=== PATIENT | male | born 1970 | race Caucasian/White ===

== ENCOUNTER → 2018-01-09 | Outpatient (REF) | payer SELFPAY, OTHER ==
[2018-01-09 12:24] LABS: BASO % 0.4 % (0.0-1.0); EOS # 0.2 10^3/uL (0.0-0.50); EOS % 4.5 % (0.0-3.0); HEMATOCRIT 43.2 % (42.0-52.0); HEMOGLOBIN 14.9 g/dl (13.5-17.5); IMMATURE GRANULOCYTE % 0.2 % (0-3.0); LYMPH # 1.5 10^3/uL (1.5-4.5); LYMPH % 29.8 % (24.0-44.0); MEAN CORPUSCULAR HEMOGLOBIN 31.3 pg (27.0-33.0); MEAN CORPUSCULAR HGB CONC 34.5 g/dl (32.0-36.5); MEAN CORPUSCULAR VOLUME 90.8 fl (80.0-96.0); MONO # 0.4 10^3/uL (0.0-0.8); MONO % 7.6 % (0.0-5.0); NEUTROPHILS # 2.8 10^3/uL (1.8-7.7); NEUTROPHILS % 57.5 % (36.0-66.0); PLATELET COUNT, AUTOMATED 160 10^3/uL (150-450); RED BLOOD COUNT 4.76 10^6/uL (4.30-6.10); RED CELL DISTRIBUTION WIDTH 12.4 % (11.5-14.5); WHITE BLOOD COUNT 4.9 10^3/uL (4.0-10.0)
[2018-01-09 12:49] LABS: ALBUMIN/GLOBULIN RATIO 1.38 (1.00-1.93); ALKALINE PHOSPHATASE 81 U/L (45-117); ALT/SGPT 28 U/L (12-78); ANION GAP 7 MEQ/L (8-16); AST/SGOT 19 U/L (7-37); BILIRUBIN,TOTAL 0.7 MG/DL (0.2-1.0); BLOOD UREA NITROGEN 18 MG/DL (7-18); CALCIUM LEVEL 8.7 MG/DL (8.5-10.1); CARBON DIOXIDE LEVEL 30 MEQ/L (21-32); CHLORIDE LEVEL 106 MEQ/L (98-107); CHOLESTEROL LEVEL 191 MG/DL (<200); CHOLESTEROL RISK RATIO 3.603 (<5); CREATININE FOR GFR 0.83 MG/DL (0.70-1.30); FREE T4 1.12 NG/DL (0.76-1.46); GLOMERULAR FILTRATION RATE > 60.0 (>60); GLUCOSE, FASTING 91 MG/DL (70-100); HDL CHOLESTEROL 53 MG/DL (>40); LDL CHOLESTEROL 126.2 MG/DL (<100); NON-HDL-C 138 MG/DL; SODIUM LEVEL 143 MEQ/L (136-145); TOTAL PROTEIN 6.9 GM/DL (6.4-8.2); TRIGLYCERIDES LEVEL 59 MG/DL (<150)
[2018-01-09 13:30] LABS: ESTIMATED AVERAGE GLUCOSE 100 MG/DL (60-110); HEMOGLOBIN A1c 5.1 %
== END ==
LOC: M SFHCPLAZ 08:34
DX: Z13.220 Encounter for screening for lipoid disorders (principal); I34.1 Nonrheumatic mitral (valve) prolapse; E66.3 Overweight
CPT/HCPCS: 84443

== ENCOUNTER → 2018-10-10 | Outpatient (REF) | payer BC ==
[2018-10-10 12:20] LABS: CHOLESTEROL RISK RATIO 3.823 (<5); FREE T4 1.05 NG/DL (0.76-1.46); THYROID STIMULATING HORMONE 2.5 uIU/ML (0.358-3.740)
[2018-10-10 13:19] LABS: HEMOGLOBIN A1c 5.2 %
== END ==
LOC: M SFHCPLAZ 08:51
PROVIDERS: ATTEND Physician Assistant Medical
DX: E66.3 Overweight (principal); Z13.220 Encounter for screening for lipoid disorders; Z12.5 Encounter for screening for malignant neoplasm of prostate
CPT/HCPCS: 36415; 80061; 83036; 84439; 84443; G0103

== ENCOUNTER → 2020-10-14 | Outpatient (REF) | payer BC ==
[2020-10-14 17:28] LABS: BASO % 0.3 % (0.0-1.0); EOS # 0.1 10^3/uL (0.0-0.5); EOS % 1.9 % (0.0-3.0); HEMATOCRIT 45.8 % (42.0-52.0); HEMOGLOBIN 15.5 g/dl (13.5-17.5); LYMPH # 1.9 10^3/uL (1.5-5.0); LYMPH % 30.2 % (24.0-44.0); MEAN CORPUSCULAR HEMOGLOBIN 31.4 pg (27.0-33.0); MEAN CORPUSCULAR HGB CONC 33.8 g/dl (32.0-36.5); MEAN CORPUSCULAR VOLUME 92.9 fl (80.0-96.0); MONO # 0.5 10^3/uL (0.0-0.8); MONO % 7.2 % (2.0-8.0); NEUTROPHILS # 3.8 10^3/uL (1.5-8.5); NEUTROPHILS % 60.1 % (36.0-66.0); PLATELET COUNT, AUTOMATED 202 10^3/uL (150-450); RED BLOOD COUNT 4.93 10^6/uL (4.30-6.10); WHITE BLOOD COUNT 6.4 10^3/uL (4.0-10.0)
[2020-10-14 17:50] LABS: ALBUMIN 3.9 GM/DL (3.2-5.2); ALT/SGPT 32 U/L (12-78); BILIRUBIN,TOTAL 0.6 MG/DL (0.2-1.0); BLOOD UREA NITROGEN 22 MG/DL (7-18); CALCIUM LEVEL 8.4 MG/DL (8.5-10.1); CARBON DIOXIDE LEVEL 30 MEQ/L (21-32); CHLORIDE LEVEL 106 MEQ/L (98-107); CHOLESTEROL LEVEL 212 MG/DL (<200); CHOLESTEROL RISK RATIO 3.593 (<5); CREATININE FOR GFR 0.85 MG/DL (0.70-1.30); FREE T4 0.95 NG/DL (0.76-1.46); GLOMERULAR FILTRATION RATE > 60.0 (>56); GLUCOSE, FASTING 63 MG/DL (70-100); HDL CHOLESTEROL 59 MG/DL (>40); LDL CHOLESTEROL 138 MG/DL (<100); NON-HDL-C 153 MG/DL; POTASSIUM SERUM 3.9 MEQ/L (3.5-5.1); SODIUM LEVEL 141 MEQ/L (136-145); TOTAL PROTEIN 7.2 GM/DL (6.4-8.2); TRIGLYCERIDES LEVEL 75 MG/DL (<150)
== END ==
LOC: M SFHCPLAZ 15:10
PROVIDERS: ATTEND Physician Assistant Medical
DX: Z00.00 Encounter for general adult medical examination without abnormal findings (principal); Z12.5 Encounter for screening for malignant neoplasm of prostate; Z13.220 Encounter for screening for lipoid disorders
CPT/HCPCS: 36415; 80053; 80061; 84439; 84443; 85025; G0103

== ENCOUNTER → 2021-04-06 | Outpatient (CLI) | payer BC | LOC: M LABSMTC 10:04 | PROVIDERS: ATTEND Anesthesiology | DX: Z01.818 Encounter for other preprocedural examination (principal); Z11.52 Encounter for screening for COVID-19 ==

== ENCOUNTER 2021-04-11 12:38 | Day surgery (SDC) | payer BC ==
[~2021-04-11] VITALS: Ht 172.7 cm; Wt 83.0 kg
[~2021-04-11 12:38] MED LIST: NS 1,000 ML IV ONE
--- OUTSIDE RECORDS SUMMARY | 2021-04-11 12:44 | CCD | Continuity of Care Document ---
Author Author Krzysztof RENTERIA M.D. Organization Unknown Address [address] [place] [address] Phone [phone] Care Team Providers Care Spray Drier Operator Name Role Phone Ann-MarieMassiel gregory Bowen CONNER AUTM [phone] Problems Active Problems Provider Date Screening for malignant neoplasm of colon Osvaldo james M.D. Onset: 11/05/2018 Social History Type Date Description Comments Sex Unknown ETOH Use Occasionally Tobacco Use Start: Unknown Patient has never smoked Allergies and adverse reactions Description No Known Drug Allergies Medications Active Medications SIG Qnty Indications Ordering Provide r Date Sutab 3728-941-325uc Tablets as directed 1box Osvaldo Renteria M.D. 02/22/2021 History Medications No Active Medications Unknown - 02/22/2021 Immunizations Description No Information Available Vital Signs Date Vital Result Comment 02/22/2021 9:11am Height 68 inches 5'8" Weight 187.00 lb BP Systolic 124 mmHg BP Diastolic 80 mmHg Heart Rate 75 /min BMI (Body Mass Index) 28.4 kg/m2 Weight 84.823 kg Body Temperature 96.4 F 11/05/2018 9:31am Height 68 inches 5'8" Weight 185.00 lb BP Systolic 124 mmHg BP Diastolic 83 mmHg Heart Rate 64 /min BMI (Body Mass Index) 28.1 kg/m2 Weight 83.916 kg Results Description No Information Available Procedures Description No Information Available Medical Devices Description No Information Available Encounters Description No Information Available Assessments Date Code Description Provider 02/22/2021 Z12.11 Encounter for screening for skyler gnant neoplasm of colon Osvaldo Renteria M.D. Plan of Treatment Future Appointment(s):* 04/11/2021 12:30 pm - Osvaldo Renteria M.D. at Main Office 02/22/2021 - Osvaldo Renteria M.D.* Z12.11 Encounter for screening for malignant neoplasm of colon* Comments:* 50 yo wm who presents for a screening colonoscopy. No c/o abdominal pain, weight loss, change in bowel habits, or rectal bleeding. No family h/o colon cancer. No h/o chest pain, or sob. Plan:1.Schedule patient for a colonoscopy.2.Informed consent given to the patient.3.Pt. advised to stop aspirin,plavix, and anticoagulants at least 3 to 7 days prior to the procedure. Functional Status Description No Information Available Mental Status Description No Information Available Referrals Description No Information Available
--- OUTSIDE RECORDS SUMMARY | 2021-04-11 12:44 | CCD | Continuity of Care Document ---
Author Author Krzysztof RENTERIA M.D. Organization Unknown Address [address] [place] [address] Phone [phone] Care Team Providers Care Health Information Administrator Name Role Phone Ann-MarieMassiel gregory Bowen CONNER AUTM [phone] Problems Active Problems Provider Date Screening for malignant neoplasm of colon Osvaldo james M.D. Onset: 11/05/2018 Social History Type Date Description Comments Sex Unknown ETOH Use Occasionally Tobacco Use Start: Unknown Patient has never smoked Allergies and adverse reactions Description No Known Drug Allergies Medications Active Medications SIG Qnty Indications Ordering Provide r Date Sutab 9988-363-825cg Tablets as directed 1box Osvaldo Renteria M.D. [...] kg Results Description No Information Available Procedures Date Code Description Status 02/22/2021 21363 Office/Outpatient Established Lo w MDM 20-29 Min Completed Medical Devices Description No Information Available Encounters Type Date Location Provider Dx Diagnosis Office Visit 02/22/2021 9:30a Main Office Osvaldo Renteria M.D. Z 12.11 Encounter for screening for malignant neoplasm of colon Assessments Date Code Description Provider 02/22/2021 Z12.11 [...]
--- OUTSIDE RECORDS SUMMARY | 2021-04-11 12:44 | CCD ---
Author Author [facility] Organization [facility] Address Unknown Phone Unavailable Care Team Providers Care Hot Strip Finisher Name Role Phone Tori Renteria MD Unavailable Unavailable Tori Renteria MD Unavailable Unavailable Tori Renteria MD Unavailable Unavailable Tori Renteria MD Unavailable Unavailable Tori Renteria MD Unavailable Unavailable Tori Renteria MD Unavailable Unavailable Tori Renteria MD Unavailable Unavailable Tori Renteria MD Unavailable Unavailable Tori Renteria MD Unavailable Unavailable Tori Renteria MD Unavailable Unavailable Tori Renteria MD Unavailable Unavailable Tori Renteria MD Unavailable Unavailable Tori Renteria MD Unavailable Unavailable Tori Renteria MD Unavailable Unavailable Tori Renteria MD Unavailable Unavailable Tori Renteria MD Unavailable Unavailable Tori Renteria MD Unavailable Unavailable Tori Renteria MD Unavailable Unavailable Tori Renteria MD Unavailable Unavailable Tori Renteria MD Unavailable Unavailable Tori Renteria MD Unavailable Unavailable Tori Renteria MD Unavailable Unavailable oTri Renteria MD Unavailable Unavailable Tori Renteria MD Unavailable Unavailable Tori Renteria MD Unavailable Unavailable Tori Renteria MD Unavailable Unavailable Tori Renteria MD Unavailable Unavailable Tori Renteria MD Unavailable Unavailable Tori Renteria MD Unavailable Unavailable Tori Renteria MD Unavailable Unavailable Tori Renteria MD Unavailable Unavailable Tori Renteria MD Unavailable Unavailable Tori Renteria MD Unavailable Unavailable Tori Renteria MD Unavailable Unavailable Tori Renteria MD Unavailable Unavailable Dexter, S Osvaldo MD Unavailable Unavailable Dexter, S Osvaldo MD Unavailable Unavailable Dexter, S Osvaldo MD Unavailable Unavailable Dexter, S Osvaldo MD Unavailable Unavailable Dexter, S Osvaldo MD Unavailable Unavailable Dexter, S Osvaldo MD Unavailable Unavailable Dexter, S Osvaldo MD Unavailable Unavailable Dexter, S Osvaldo MD Unavailable Unavailable Dexter, S Osvaldo MD Unavailable Unavailable Dexter, S Osvaldo MD Unavailable Unavailable Dexter, S Osvaldo MD Unavailable Unavailable Dexter, S Osvaldo MD Unavailable Unavailable Dexter, S Osvaldo MD Unavailable Unavailable Dexter, S Osvaldo MD Unavailable Unavailable Dexter, S Osvaldo MD Unavailable Unavailable Re-disclosure Warning The records that you are about to access may contain information from federally-assisted alcohol or drug abuse programs. If such information is present, then the following federally mandated warning applies: This information has been disclosed to you from records protected by federal confidentiality rules (42 CFR part 2). The federal rules prohibit you from making any further disclosure of this information unless further disclosure is expressly permitted by the written consent of the person to whom it pertains or as otherwise permitted by 42 CFR part 2. A general authorization for the release of medical or other information is NOT sufficient for this purpose. The Federal rules restrict any use of the information to criminally investigate or prosecute any alcohol or drug abuse patient.The records that you are about to access may contain highly sensitive health information, the redisclosure of which is protected by Article 27-F of the [facility] Public Health law. If you continue you may have access to information: Regarding HIV / AIDS; Provided by facilities licensed or operated by the [facility] Office of Mental Health; or Provided by the [facility] Office for People With Developmental Disabilities. If such information is present, then the following [facility] mandated warning applies: This information has been disclosed to you from confidential records which are protected by state law. State law prohibits you from making any further disclosure of this information without the specific written consent of the person to whom it pertains, or as otherwise permitted by law. Any unauthorized further disclosure in violation of state law may result in a fine or chcf sentence or both. A general authorization for the release of medical or other information is NOT sufficient authorization for further disc losure. Family History Family Member Name Family Member Gender Family Member Status Date o f Status Description Data Source(s) Unknown Female Problem [facility] ([facility]) Encounters Encounter Providers Location Date Indications Data Source(s ) Outpatient Attender: Osvaldo Renteria MD Main Office 02/22/2021 09:30:00 AM EDT [facility] ([facility]) [place] [address] [facility] [address] 10/14/2020 12:00:00 AM EDT eCW1 ([facility]) [place] [address] [facility] [address] 09/23/2020 12:00:00 AM EDT eCW1 ([facility]) [place] [address] [facility] [address] 09/22/2020 12:00:00 AM EDT eCW1 ([facility]) Unknown [address] [facility] [address] 09/21/2020 12:00:00 AM EDT eCW1 ([facility]) Unknown [address] [facility] [address] 09/21/2020 12:00:00 AM EDT eCW1 ([facility]) [place] [address] [facility] [address] 09/17/2020 12:00:00 AM EDT eCW1 ([facility]) Outpatient [address] [facility] [address] 09/13/2020 12:00:00 AM EDT eCW1 ([facility]) Immunizations Vaccine Date Status Description Data Source(s) COVID-19 dose #2 given elsewhere Unspecified 10/04/2020 02:3 5:00 PM EDT completed eCW1 ([facility]) COVID-19 VACCINE Pfizer 10/04/2020 12:00:00 AM EDT completed [employer] Vaccine Series Complete: YESThis Data wa s Submitted to [facility] Via [employer]. COVID-19 dose #1 given elsewhere Unspecified 09/13/2020 08:2 5:00 AM EDT completed eCW1 ([facility]) COVID-19 dose #1 given elsewhere Unspecified 09/13/2020 08:2 5:00 AM EDT completed eCW1 ([facility]) COVID-19 dose #1 given elsewhere Unspecified 09/13/2020 08:2 5:00 AM EDT completed eCW1 ([facility]) COVID-19 dose #1 given elsewhere Unspecified 09/13/2020 08:2 5:00 AM EDT completed eCW1 ([facility]) COVID-19 dose #1 given elsewhere Unspecified 09/13/2020 08:2 5:00 AM EDT completed eCW1 ([facility]) COVID-19 dose #1 given elsewhere Unspecified 09/13/2020 08:2 5:00 AM EDT completed eCW1 ([facility]) COVID-19 dose #1 given elsewhere Unspecified 09/13/2020 08:2 5:00 AM EDT completed eCW1 ([facility]) COVID-19 VACCINE Pfizer 09/13/2020 12:00:00 AM EDT completed [facility] Vaccine Series Complete: NOThis Data was Submitted to [facility] Via [employer]. Medications Medication Brand Name Start Date Product Form Dose Route Admi nistrative Instructions Pharmacy Instructions Status Indications Reaction Description Data Source(s) Sutab Sutab 02/22/2021 12:00:00 AM EDT active [facility] ([facility]) No Active Medications 02/22/2021 12:00:00 AM EDT completed [facility] ([facility]) Insurance Providers Payer name Policy type / Coverage type Policy ID Covered alliance party ID Covered alliance party's relationship to romero Policy Romero Plan Information [employer] [place]/307 [id number] SP [id number] [employer] [place]/307 [id number] SP [id number] ANSI-Commercial [id number] ANSI-Commercial [id number] ANSI-Not a Secondary Insurance [id number] BS [facility] Commercial [id number] Self [id number] ANSI-Commercial [id number] ANSI-Not a Secondary Insurance [id number] ANSI-Commercial [id number] ANSI-Commercial [id number] ANSI-Commercial [id number] ANSI-Not a Secondary Insurance [id number] ANSI-Commercial [id number] ANSI-Commercial [id number] ANSI-Not a Secondary Insurance [id number] ANSI-Commercial [id number] ANSI-Commercial [id number] ANSI-Not a Secondary Insurance [id number] ANSI-Not a Secondary Insurance [id number] ANSI-Commercial [id number] ANSI-Commercial [id number] ANSI-Not a Secondary Insurance [id number] ANSI-Commercial [id number] ANSI-Commercial [id number] ANSI-Not a Secondary Insurance [id number] ANSI-Commercial [id number] ANSI-Commercial [id number] ANSI-Not a Secondary Insurance [id number] ANSI-Not a Secondary Insurance [id number] ANSI-Commercial [id number] ANSI-Not a Secondary Insurance [id number] ANSI-Commercial [id number] SELF PAY ONLY [id number] ANSI-Commercial [id number] ANSI-Not a Secondary Insurance [id number] SELF PAY ONLY - [id number] SP [id number] BCBS [place] [id number] S [id number] [id number] BCBS [place] [id number] S [id number] [place]BS [place] PPO 302/307 [id number] SP [id number] Problems, Conditions, and Diagnoses No Information Surgeries/Procedures Procedure Description Date Indications Data Source(s) OFFICE OUTPATIENT VISIT 15 MINUTES 02/22/2021 12:00:00 AM EDT [facility] ([facility]) Results ID Date Data Source LIPID PANEL (CARDIAC RISK) 10/14/2020 12:00:00 AM EDT [facility] ( [facility]) Name Value Range Interpretation Code Description Data Serena rce(s) Supporting Document(s) Cholesterol [Moles/volume] in Serum or Plasma 212 <200 CHOLESTEROL LEVEL eC ([facility]) Triglyceride [Mass/volume] in Serum or Plasma by calculation 75 <150 TRIGLYCERIDES LEVEL eCW1 ([facility]) Cholesterol in HDL [Moles/volume] in Serum or Plasma 59 >40 HDL CHOLESTEROL eCW1 ([facility]) Cholesterol in LDL [Mass/volume] in Serum or Plasma by calculation 138 <100 LDL CHOLESTEROL [facility] ([facility]) 3.593 <5 CHOLESTEROL RISK RATIO eCW1 ([facility]) 153 NON-HDL-C eCW1 ([facility]) ID Date Data Source PSA SCREENING 10/14/2020 12:00:00 AM EDT eCW1 ([facility]) Name Value Range Interpretation Code Description Data Serena rce(s) Supporting Document(s) 0.90 < 4.00 PSA SCREENING eCW1 ([facility]) ID Date Data Source FREE T4 & TSH PANEL 10/14/2020 12:00:00 AM EDT eCW1 ([facility]) Name Value Range Interpretation Code Description Data Serena rce(s) Supporting Document(s) 2.180 0.358-3.740 THYROID STIMULATING HORM ONE eCW1 ([facility]) 0.95 0.76-1.46 FREE T4 eCW1 ([facility]) ID Date Data Source Comprehensive Metabolic Profile (CMP) 10/14/2020 12:00:00 AM EDT eCW1 ([facility]) Name Value Range Interpretation Code Description Data Serena rce(s) Supporting Document(s) 63 70-100 GLUCOSE, FASTING eCW1 ([facility]) 0.85 0.70-1.30 CREATININE FOR GFR eCW1 ([facility]) 22 7-18 BLOOD UREA NITROGEN eCW1 ([facility]) > 60.0 >56 GLOMERULAR FILTRATION RATE eCW 1 ([facility]) 3.9 3.5-5.1 POTASSIUM SERUM eCW1 ([facility]) 106 98-107 CHLORIDE LEVEL eCW1 ([facility]) 141 136-145 SODIUM LEVEL eCW1 ([facility]) 8.4 8.5-10.1 CALCIUM LEVEL eCW1 ([facility]) 30 21-32 CARBON DIOXIDE LEVEL eCW1 ([facility]) 21 7-37 AST/SGOT eCW1 ([facility]) 7.2 6.4-8.2 TOTAL PROTEIN eCW1 ([facility]) 91 45-117 ALKALINE PHOSPHATASE eCW1 ([facility]) 0.6 0.2-1.0 BILIRUBIN,TOTAL eCW1 ([facility]) 32 12-78 ALT/SGPT eCW1 ([facility]) 3.9 3.2-5.2 ALBUMIN eCW1 ([facility]) 1.2 ALBUMIN/GLOBULIN RATIO eCW1 ([facility]) ID Date Data Source CBC with Differential 10/14/2020 12:00:00 AM EDT eCW1 ([facility]) Name Value Range Interpretation Code Description Data Serena rce(s) Supporting Document(s) 6.4 4.0-10.0 WHITE BLOOD COUNT eCW1 ([facility]) 4.93 4.30-6.10 RED BLOOD COUNT eCW1 ([facility]) 15.5 13.5-17.5 HEMOGLOBIN eCW1 ([facility]) 45.8 42.0-52.0 HEMATOCRIT eCW1 ([facility]) 92.9 80.0-96.0 MEAN CORPUSCULAR VOLUME e CW1 ([facility]) 31.4 27.0-33.0 MEAN CORPUSCULAR HEMOGLOB IN eCW1 ([facility]) 33.8 32.0-36.5 MEAN CORPUSCULAR HGB CONC eCW1 ([facility]) 12.2 11.5-14.5 RED CELL DISTRIBUTION WID TH eCW1 ([facility]) 202 150-450 PLATELET COUNT, AUTOMATED eCW1 ([facility]) 60.1 36.0-66.0 NEUTROPHILS % eCW1 ([facility]) 30.2 24.0-44.0 LYMPH % eCW1 ([facility]) 1.9 0.0-3.0 EOS % eCW1 ([facility]) 7.2 2.0-8.0 MONO % eCW1 ([facility]) 3.8 1.5-8.5 NEUTROPHILS # eCW1 ([facility]) 0.3 0.0-1.0 BASO % eCW1 ([facility]) 1.9 1.5-5.0 LYMPH # eCW1 ([facility]) 0.0 0.0-0.2 BASO # eCW1 ([facility]) 0.1 0.0-0.5 EOS # eCW1 ([facility]) 0.5 0.0-0.8 MONO # eCW1 ([facility]) Procedure Social History Code Duration Value Status Description Data Source(s ) Smoking 10/14/2020 12:00:00 AM EDT Never Smoker completed Never S moker eCW1 ([facility]) Smoking 09/13/2020 12:00:00 AM EDT Never Smoker completed Never S moker eCW1 ([facility]) Smoking 09/13/2020 12:00:00 AM EDT Never Smoker completed Never S moker eCW1 ([facility]) Smoking 09/13/2020 12:00:00 AM EDT Never Smoker completed Never S moker eCW1 ([facility]) Smoking 09/13/2020 12:00:00 AM EDT Never Smoker completed Never S moker eCW1 ([facility]) Smoking 09/13/2020 12:00:00 AM EDT Never Smoker completed Never S moker eCW1 ([facility]) Smoking 09/13/2020 12:00:00 AM EDT Never Smoker completed Never S moker eCW1 ([facility]) Vital Signs ID Date Data Source UNK Name Value Range Interpretation Code Description Data Source(s) Body height 68 [in_i] 68 [in_i] [facility] ([facility] 5'8" Body weight 187.00 [lb_av] 187.00 [lb_av] MEDEN T ([facility]) Systolic blood pressure 124 mm[Hg] 124 mm[Hg] M EDENT ([facility]) Diastolic blood pressure 80 mm[Hg] 80 mm[Hg] [facility] ([facility]) Heart rate 75 /min 75 /min [facility] ([facility]) Body mass index (BMI) [Ratio] 28.4 kg/m2 28.4 k g/m2 MED[facility] ([facility]) Body weight 84.823 kg 84.823 kg [facility] ([facility]) Body temperature 96.4 [degF] 96.4 [degF] MEDENT ([facility]) Body weight 190 [lb_av] 190 [lb_av] eCW1 ([facility]) Body height 68.5 [in_i] 68.5 [in_i] eCW1 ([facility]) Body mass index (BMI) [Ratio] 28.47 kg/m2 28.47 kg/m2 eCW1 ([facility]) Heart rate 94 /min 94 /min eCW1 ([facility]) Respiratory rate 18 /min 18 /min eCW1 ([facility]) Body temperature 97.6 [degF] 97.6 [degF] eCW1 ( [facility]) Systolic blood pressure 116 mm[Hg] 116 mm[Hg] e CW1 ([facility]) Diastolic blood pressure 78 mm[Hg] 78 mm[Hg] eCW1 ([facility]) Body weight 189.6 [lb_av] 189.6 [lb_av] eCW1 ([facility]) Body height 68.5 [in_i] 68.5 [in_i] eCW1 ([facility]) Body mass index (BMI) [Ratio] 28.41 kg/m2 28.41 kg/m2 eCW1 ([facility]) Heart rate 93 /min 93 /min eCW1 ([facility]) Respiratory rate 18 /min 18 /min eCW1 ([facility]) Body temperature 98.0 [degF] 98.0 [degF] eCW1 ( [facility]) Systolic blood pressure 118 mm[Hg] 118 mm[Hg] e CW1 ([facility]) Diastolic blood pressure 76 mm[Hg] 76 mm[Hg] eCW1 ([facility])
[2021-04-11] MEDS ORDERED: propofoL 200 MG/20 ML VIAL As Ordered ONE ×2 (14:06→14:15)
[2021-04-11] MEDS ORDERED: LIDOCAINE 2% 100MG/5ML SDV (FOR ANES.) As Ordered ONE (14:06)
--- NOTE | 2021-04-11 14:27 | ROOR ---
Patient Name: Krzysztof Morales Procedure Date: 04/11/2021 2:02 PM Date of : 1970 Age: 51 Room: [facility] Gender: Male Note Status: Finalized Procedure: Total Colonoscopy to Cecum + ileoscopy Indications: Screening for colorectal malignant neoplasm Providers: Osvaldo Renteria MD Referring MD: Massiel MANCUSO Requesting Provider: Medicines: Monitored Anesthesia Care Complications: No immediate complications. Procedure: Pre-Anesthesia Assessment: - The heart rate, respiratory rate, oxygen saturations, blood pressure, adequacy of pulmonary ventilation, and response to care were monitored throughout the procedure. The Colonoscope was introduced through the anus and advanced to the cecum, identified by appendiceal orifice and ileocecal valve. The colonoscopy was performed without difficulty. The patient tolerated the procedure well. The quality of the bowel preparation was excellent. Findings: The perianal and digital rectal examinations were normal. No other significant abnormalities were identified in a careful examination of the remainder of the colon. The terminal ileum appeared normal. Impression: - The examined portion of the ileum was normal. - No specimens collected. - The exam was otherwise normal to the cecum. Recommendation: - Patient has a contact number available for emergencies. The signs and symptoms of potential delayed complications were discussed with the patient. Return to normal activities tomorrow. Written discharge instructions were provided to the patient. - High fiber diet. - Discharge patient to home. - Continue present medications. - Repeat colonoscopy in 10 years for screening purposes. - Return to referring physician. - The findings and recommendations were discussed with the patient. Procedure Code(s): --- Professional --- 64879, Colonoscopy, flexible; diagnostic, including collection of specimen(s) by brushing or washing, when performed (separate procedure) Diagnosis Code(s): --- Professional --- Z12.11, Encounter for screening for malignant neoplasm of colon CPT copyright 2019 [employer]. All rights reserved. The codes documented in this report are preliminary and upon cement conveyor operator review may be revised to meet current compliance requirements. Osvaldo Renteria MD Osvaldo Renteria MD 04/11/2021 2:27:25 PM Electronically signed by Osvaldo Renteria MD Number of Addenda: 0 Note Initiated On: 04/11/2021 2:02 PM Estimated Blood Loss: Estimated blood loss: none.
[2021-04-11 14:41] VITALS: BP 122/80
== END 2021-04-11 14:41 | disposition home or self-care (01) ==
LOC: M OPP 12:38
PROVIDERS: ATTEND Internal Medicine Gastroenterology
DX: Z12.11 Encounter for screening for malignant neoplasm of colon (principal)

== ENCOUNTER → 2024-10-08 | Outpatient (REF) | payer MEDICARE | LOC: M SFHCLERA 10:00 | PROVIDERS: ATTEND Internal Medicine | DX: Z53.21 Procedure and treatment not carried out due to patient leaving prior to being seen by health care provider (principal) ==

== ENCOUNTER → 2024-10-14 | Outpatient (CLI) | payer MEDICARE ==
[2024-10-14 09:44] LABS: APPEARANCE, URINE CLEAR (CLEAR); BACTERIA, URINE AUTO NEGATIVE (NEGATIVE); BASO % 0.2 % (0.0-1.0); BILIRUBIN, URINE AUTO NEGATIVE (NEGATIVE); BLOOD, URINE BLOOD NEGATIVE (NEGATIVE); COLOR, URINE STRAW (YELLOW); EOS # 0.1 10^3/uL (0.0-0.5); EOS % 2.7 % (0.0-3.0); GLUCOSE, URINE (UA) AUTO NEGATIVE (NEGATIVE); HEMATOCRIT 44.1 % (42.0-52.0); HEMOGLOBIN 15.2 g/dl (13.5-17.5); KETONE, URINE AUTO NEGATIVE (NEGATIVE); LEUKOCYTE ESTERASE, URINE AUTO NEGATIVE (NEGATIVE); LYMPH # 1.3 10^3/uL (1.5-5.0); LYMPH % 31.6 % (24.0-44.0); MEAN CORPUSCULAR HEMOGLOBIN 30.8 pg (27.0-33.0); MEAN CORPUSCULAR HGB CONC 34.5 g/dl (32.0-36.5); MEAN CORPUSCULAR VOLUME 89.5 fl (80.0-96.0); MONO # 0.5 10^3/uL (0.0-0.8); MONO % 11.2 % (2.0-8.0); NEUTROPHILS # 2.2 10^3/uL (1.5-8.5); NEUTROPHILS % 54.1 % (36.0-66.0); NITRITE, URINE AUTO NEGATIVE (NEGATIVE); PLATELET COUNT, AUTOMATED 173 10^3/uL (150-450); PROTEIN, URINE AUTO NEGATIVE (NEGATIVE); RBC, URINE AUTO 0 /HPF (0-3); RED BLOOD COUNT 4.93 10^6/uL (4.30-6.10); SPECIFIC GRAVITY URINE AUTO 1.004 (1.002-1.035); SQUAMOUS EPITHELIAL CELL UR AU 0 /HPF (0-6); UROBILINOGEN, URINE AUTO 0.2 mg/dL (0.0-2.0); WBC, URINE AUTO 0 /HPF (0-3); WHITE BLOOD COUNT 4.1 10^3/uL (4.0-10.0)
[2024-10-14 10:14] LABS: ALBUMIN 4.1 G/DL (3.2-5.2); ALKALINE PHOSPHATASE 84 U/L (40-129); ALT/SGPT 24 U/L (7.0-40); AST/SGOT 25 U/L (<34); BILIRUBIN,TOTAL 0.9 MG/DL (0.3-1.2); BLOOD UREA NITROGEN 16 MG/DL (9-23); CALCIUM LEVEL 8.8 MG/DL (8.5-10.1); CARBON DIOXIDE LEVEL 26 MMOL/L (20-31); CHLORIDE LEVEL 105 MMOL/L (98-107); CHOLESTEROL LEVEL 160 MG/DL (<200); CHOLESTEROL RISK RATIO 4.17 (<5); CREATININE FOR GFR 0.82 MG/DL (0.70-1.30); GLOMERULAR FILTRATION RATE > 90.0 (>56); GLUCOSE, FASTING 84 MG/DL (60-100); HDL CHOLESTEROL 38.3 MG/DL (>40); LDL CHOLESTEROL 109.5 MG/DL (<100); NON-HDL-C 121.7 MG/DL; SODIUM LEVEL 141 MMOL/L (136-145); TOTAL PROTEIN 6.9 G/DL (5.7-8.2); TRIGLYCERIDES LEVEL 61 MG/DL (<150)
[2024-10-14 10:16] LABS: TOTAL 25(OH) VITAMIN D 42.8 NG/ML (20.0-100.0)
[2024-10-14 10:41] LABS: HEMOGLOBIN A1c 5.2 % (4.0-6.0)
== END ==
LOC: M RAD 08:55
PROVIDERS: ATTEND Internal Medicine
DX: Z00.00 Encounter for general adult medical examination without abnormal findings (principal); M54.89 Other dorsalgia; Z79.899 Other long term (current) drug therapy

== ENCOUNTER 2024-12-31 08:25 | Outpatient (RCR) | payer MEDICARE | END 2025-01-01 | LOC: M PT 08:25 | PROVIDERS: ATTEND Internal Medicine | DX: M54.89 Other dorsalgia (principal) ==